=== PATIENT | female | born 1955 | race Caucasian/White ===

== ENCOUNTER → 2017-01-02 | Outpatient (CLI) | payer BC ==
--- NOTE | 2017-01-02 15:45 | Diagnostic Imaging Report ---
Thoracic spine. INDICATION: Back pain. FINDINGS: AP, lateral, and swimmer's views were obtained. There are no prior studies available for comparison. The AP view does show curvature of the lower thoracic spine, convex to the left and curvature of the thoracolumbar junction, convex to the right. There is also fairly severe degenerative disc and bony disease involving the mid and lower thoracic spine and the upper lumbar spine. There is no fracture or acute bony abnormality identified. There is no sign of a paraspinal mass. IMPRESSION: 1. There is no evidence for an acute bony abnormality. 2. There is levoscoliosis of the lower thoracic spine and dextroscoliosis of the thoracolumbar junction with associated fairly severe degenerative disc and bony disease. 3. If there is clinical concern regarding spinal stenosis or nerve root encroachment, then MRI will be recommended for further study. Dictated by: Dictated on workstation # [id number]
== END ==
LOC: RAD 11:13
PROVIDERS: ATTEND Pain Medicine Pain Medicine
DX: M54.6 Pain in thoracic spine (principal)
CPT/HCPCS: 72072